=== PATIENT | female | born 1970 | race American Indian/Alaskan Native ===

== ENCOUNTER 2018-03-01 07:45 | Outpatient (CLI) | payer OTHER | END 2018-03-01 07:46 | disposition home or self-care (01) | LOC: PF 07:45 | PROVIDERS: ATTEND Internal Medicine | DX: J45.909 Unspecified asthma, uncomplicated (principal); I10 Essential (primary) hypertension; G25.2 Other specified forms of tremor; A60.00 Herpesviral infection of urogenital system, unspecified; M50.30 Other cervical disc degeneration, unspecified cervical region; K21.9 Gastro-esophageal reflux disease without esophagitis; R42 Dizziness and giddiness; Z98.890 Other specified postprocedural states | CPT/HCPCS: 94010 ==